=== PATIENT | female | born 1965 ===

== ENCOUNTER 2018-06-17 09:20 | Day surgery (SDC) | payer OTHER, MEDICAID ==
[2018-06-12 16:40] VITALS: BMI 26.6
[2018-06-17] MEDS ORDERED: Lidocaine PF 2% (5 ml) Inj (For Cardiac Arrhy) ONE (10:06)
[2018-06-17] MEDS ORDERED: Nitroglycerin 50mg in D5W 50 MG/250 ML BOTTLE IV ONE (10:07)
[2018-06-17] MEDS ORDERED: Verapamil 2 ML ONE (10:07)
[2018-06-17] MEDS ORDERED: Famotidine 20mg/50ml 20 MG/50 ML BAG IVPB ONE (10:07)
[2018-06-17] MEDS ORDERED: DiphenhydrAMINE 50 mg/ml Inj ONE (10:07)
[2018-06-17] MEDS ORDERED: Iodixanol 320 MG/ML 200 ML BOTTLE IV ONE (10:07)
[2018-06-17] MEDS ORDERED: Iodixanol 320 MG/ML 100 ML BOTTLE IV ONE (10:07)
[2018-06-17] MEDS ORDERED: Midazolam 2 MG/2 ML VIAL ONE (11:02)
[2018-06-17 12:19] VITALS: RESP 18; TEMP 98.2
--- NOTE | 2018-06-17 14:00 | CARDCATH ---
Copied To: García Lo MD Attending MD: García Lo MD PROCEDURE DATE: 06/17/2018 INDICATIONS: Delia Lenz is a 53-year-old female who presented to [facility] with complaints of syncopal episodes and chest pains. Patient was falling on the right side, was ruled out for ACS and echocardiogram showed normal ejection fraction with subsequent plan for possible discharge recurrent fall episodes, for which [employer] was called. She subsequently underwent nuclear stress test, which showed evidence of ischemia in the anterior wall, for which she was brought for cath and further evaluation of coronary artery disease. PROCEDURES PERFORMED: Left heart catheterization with selective left and right coronary angiogram, left ventriculogram, 6-[place] right femoral arterial access, Mynx closure device for hemostasis. TECHNIQUES OF PROCEDURE: After obtaining informed consent, the patient was brought to the cardiac cath suite in post-absorptive, non-sedated state. Patient was prepped and draped in the usual sterile fashion. A 2% lidocaine was used for infiltration of anesthesia. Using modified Seldinger technique, a 6-[place] sheath was introduced into the right femoral artery. Subsequently over a J-wire, a JL4 and JR4 diagnostic catheters were used to engage the left and right coronary system. Angiograms were obtained in different orthogonal views. Subsequently, a left ventriculogram was performed with hand injection in the BOWSER oblique view. Hemodynamics were obtained. HEMODYNAMICS: Left ventricular end-diastolic pressure was 21 mmHg. There was no gradient noted upon the aortic valve pullback. There was no AI, no MR. Left ventricular ejection fraction estimated to be 60% to 65%. CORONARY ANATOMY: Left main is a large sized vessel, it bifurcates into left anterior descending and left circumflex coronary artery. Left circumflex coronary artery has a proximal tortuosity with no obstructive disease, 10% to 20% proximal, 10% mid and 20% distal obstruction. The obtuse marginal 1 patent with no obstructive disease. Left anterior descending artery proximal 20, mid LAD has a myocardial bridge noted in contractility of the heart with 40% contractility noted with luminal narrowing with each contractile heartbeat, gives off two small diagonal branches. RCA large sized vessel, right dominant circulation, nonobstructive disease, RCA proximal and distal 0%. IMPRESSION: Nonobstructive coronary artery disease in mid left anterior descending, myocardial bridge, normal ejection fraction. RECOMMENDATIONS: Patient can be transferred back to [facility] in four hours. Keep the patient on aspirin, beta-blockers, statins. García Lo MD cc: Ej Saenz MD
[2018-06-17 17:33] VITALS: BP 136/75; PULSE 99
== END 2018-06-17 18:00 | disposition short-term general hospital (02) ==
LOC: CATH 09:20 → 2RSO 11:43 → CATH 18:00
PROVIDERS: ATTEND Internal Medicine Interventional Cardiology
DX: I25.10 Atherosclerotic heart disease of native coronary artery without angina pectoris (principal); Q24.5 Malformation of coronary vessels; I11.0 Hypertensive heart disease with heart failure; I50.9 Heart failure, unspecified; R56.9 Unspecified convulsions; G43.909 Migraine, unspecified, not intractable, without status migrainosus; F41.9 Anxiety disorder, unspecified; R07.9 Chest pain, unspecified; F32.89 Other specified depressive episodes; E78.00 Pure hypercholesterolemia, unspecified; E11.9 Type 2 diabetes mellitus without complications; R55 Syncope and collapse; J44.9 Chronic obstructive pulmonary disease, unspecified; Z86.73 Personal history of transient ischemic attack (TIA), and cerebral infarction without residual deficits; M19.90 Unspecified osteoarthritis, unspecified site; M81.0 Age-related osteoporosis without current pathological fracture; Z90.3 Acquired absence of stomach [part of]; F20.9 Schizophrenia, unspecified; M25.511 Pain in right shoulder; Z90.49 Acquired absence of other specified parts of digestive tract; Z90.710 Acquired absence of both cervix and uterus; Z88.6 Allergy status to analgesic agent; Z88.5 Allergy status to narcotic agent; Z91.013 Allergy to seafood; Z88.8 Allergy status to other drugs, medicaments and biological substances; Z91.018 Allergy to other foods; Z79.4 Long term (current) use of insulin
CPT/HCPCS: 93458; 99152; C1760; C1769; C2629; J1200; J1644; J2250; J2930; J3010; Q9966